=== PATIENT | female | born 1950 | race African-American/Black ===

== ENCOUNTER 2018-06-10 20:54 | Inpatient (IN) ==
[2018-06-10 21:28] LABS: Basophils % 0.3 % (0.0-0.8); Eosinophils # 0.2 10*3/uL (0.0-0.87); Eosinophils % 3.9 % (0.00-10.9); Hematocrit 45.8 VOL% (35.7-47.0); Hemoglobin 14.3 GM/DL (12.0-16.0); Immature Granulocytes % 0.2 %; Immature Granulocytes Absolute 0.01 #; Lymphocytes % 33.1 % (21.3-54.2); Mean Corpuscular HGB Conc 31.2 GM/DL (32-36); Mean Corpuscular Hemoglobin 26 PG (27-34); Mean Platelet Volume 10.8 FL (9.6-12.0); Monocytes # 0.5 10*3/uL (0.11-0.8); Monocytes % 7.6 % (1.7-12.7); Neutrophils # 3.3 10*3/uL (1.4-7.4); Neutrophils % 54.9 % (38.7-73.9); Platelet Count 246 T/CUMM (130-400); Red Blood Count 5.52 MC/CUMM (3.8-5.5); Red Cell Distribution Width 14.2 % (9.3-17.3); White Blood Count 5.9 T/CUMM (4-12)
[2018-06-10] MEDS ORDERED: DILTIAZEM 50 MG/10 ML VIAL IV STA (21:29)
[2018-06-10] MEDS ORDERED: dilTIAZem Drip 125 MG/125 ML PREMIX IV SCH ×2 (21:30→23:00)
[2018-06-10 22:01] LABS: Alanine Aminotransferase 23 U/L (13-56); Albumin 3.5 G/DL (3.4-5.0); Alkaline Phosphatase 73 U/L (45-117); Aspartate Amino Transferase 23 U/L (0-37); Bilirubin,Total < 0.39 MG/DL (0.2-1.0); Blood Urea Nitrogen 15 MG/DL (7-18); Calcium 8.6 MG/DL (8.5-10.1); Glucose 147 MG/DL (74-106); Osmolality,Calculated 280.5 MOS/KG (273-304); Potassium 3.9 MMOL/L (3.5-5.1); Sodium 139 MMOL/L (136-145); Total Protein 7.4 G/DL (6.4-8.3)
[2018-06-10 22:04] LABS: Troponin I 0.588 NG/ML (0.00-0.045)
[2018-06-10] MEDS ORDERED: ENOXAPARIN 100 MG/ML SYRINGE SUBCUT STA (22:07)
[2018-06-10] MEDS ORDERED: diphenhydrAMINE CAP 25 MG CAPSULE PO PRN (22:55)
[2018-06-10] MEDS ORDERED: MAGNESIUM SULF RIDER 2 GM in PREMIX 1 EACH IV PRN (22:55)
[2018-06-10] MEDS ORDERED: MAGNESIUM SULF RIDER 4 GM in PREMIX 1 EACH IV PRN (22:55)
[2018-06-10] MEDS ORDERED: NICOTINE 21 MG/24 HR PATCH TRANSDERM PRN (22:55)
[2018-06-10] MEDS ORDERED: ONDANSETRON 4 MG/2 ML VIAL IV PRN (22:55)
[2018-06-10] MEDS ORDERED: BISACODYL 5 MG TABLET PO PRN (22:55)
[2018-06-10] MEDS ORDERED: ACETAMINOPHEN 325 MG TABLET PO PRN (22:55)
[2018-06-10] MEDS ORDERED: POTASSIUM CHLORIDE 20 MEQ TABLET PO PRN (22:55)
[2018-06-10] MEDS ORDERED: ZALEPLON 5 MG CAPSULE PO PRN (22:55)
[2018-06-10] MEDS ORDERED: MORPHINE 4 MG/1 ML VIAL IV PRN (22:55)
[2018-06-10] MEDS ORDERED: ENOXAPARIN 40 MG/0.4 ML SYRINGE SUBCUT SCH (23:00)
[2018-06-10 23:15] LABS: Risk Ratio 3.66; VLDL CHOLESTEROL 46.6 MG/DL
[2018-06-10] MEDS ORDERED: ASPIRIN 325 MG TABLET PO STA (23:30)
[2018-06-11 04:56] LABS: Basophils % 0.2 % (0.0-0.8); Eosinophils # 0.1 10*3/uL (0.0-0.87); Eosinophils % 2.1 % (0.00-10.9); Hematocrit 43.1 VOL% (35.7-47.0); Hemoglobin 13.4 GM/DL (12.0-16.0); Immature Granulocytes % 0.3 %; Immature Granulocytes Absolute 0.02 #; Lymphocytes # 1.7 10*3/uL (1.4-4.0); Lymphocytes % 25.5 % (21.3-54.2); Mean Corpuscular HGB Conc 31.1 GM/DL (32-36); Mean Corpuscular Hemoglobin 26 PG (27-34); Mean Corpuscular Volume 82.7 FL (87-102); Mean Platelet Volume 11.4 FL (9.6-12.0); Monocytes # 0.5 10*3/uL (0.11-0.8); Monocytes % 7.1 % (1.7-12.7); Neutrophils # 4.3 10*3/uL (1.4-7.4); Neutrophils % 64.8 % (38.7-73.9); Platelet Count 234 T/CUMM (130-400); Red Blood Count 5.21 MC/CUMM (3.8-5.5); Red Cell Distribution Width 14.2 % (9.3-17.3); White Blood Count 6.6 T/CUMM (4-12)
[2018-06-11 05:16] LABS: Alanine Aminotransferase 19 U/L (13-56); Alkaline Phosphatase 69 U/L (45-117); Aspartate Amino Transferase 22 U/L (0-37); Bilirubin,Total < 0.39 MG/DL (0.2-1.0); Blood Urea Nitrogen 15 MG/DL (7-18); Calcium 8.1 MG/DL (8.5-10.1); Glucose 135 MG/DL (74-106); Osmolality,Calculated 279.5 MOS/KG (273-304); Potassium 3.6 MMOL/L (3.5-5.1); Sodium 139 MMOL/L (136-145); Total Protein 6.6 G/DL (6.4-8.3)
[2018-06-11] MEDS: PANTOPRAZOLE 40 MG TABLET PO SCH (09:49)
[2018-06-11] MEDS: ASPIRIN EC 81 MG TABLET PO SCH (09:50)
[2018-06-11] MEDS: DILTIAZEM CD 120 MG CAPSULE PO SCH (10:36)
[2018-06-11] MEDS: APIXABAN 5 MG TABLET PO SCH ×2 (10:36→20:40)
[2018-06-11] MEDS ORDERED: ENOXAPARIN 40 MG/0.4 ML SYRINGE SUBCUT SCH (21:00)
[2018-06-12 04:46] LABS: Calcium 8.6 MG/DL (8.5-10.1); Osmolality,Calculated 279.4 MOS/KG (273-304); Potassium 4.1 MMOL/L (3.5-5.1)
[2018-06-12] MEDS: DILTIAZEM CD 120 MG CAPSULE PO SCH ×3 (07:56→23:30)
[2018-06-12] MEDS: APIXABAN 5 MG TABLET PO SCH ×3 (07:57→23:32)
[2018-06-12] MEDS: PANTOPRAZOLE 40 MG TABLET PO SCH ×2 (07:57→08:00)
[2018-06-12] MEDS: ASPIRIN EC 81 MG TABLET PO SCH ×2 (07:57→08:00)
[2018-06-12] MEDS: dilTIAZem Drip 125 MG/125 ML PREMIX IV SCH (09:55)
[2018-06-12] MEDS ORDERED: DILTIAZEM 30 MG TABLET PO ONE (12:30)
[2018-06-13 07:40] LABS: Basophils % 0.3 % (0.0-0.8); Eosinophils # 0.1 10*3/uL (0.0-0.87); Eosinophils % 2.2 % (0.00-10.9); Hematocrit 47.5 VOL% (35.7-47.0); Hemoglobin 14.8 GM/DL (12.0-16.0); Immature Granulocytes % 0.2 %; Immature Granulocytes Absolute 0.01 #; Lymphocytes # 2.3 10*3/uL (1.4-4.0); Lymphocytes % 39.6 % (21.3-54.2); Mean Corpuscular HGB Conc 31.2 GM/DL (32-36); Mean Corpuscular Hemoglobin 25 PG (27-34); Mean Corpuscular Volume 81.6 FL (87-102); Mean Platelet Volume 10.6 FL (9.6-12.0); Monocytes # 0.5 10*3/uL (0.11-0.8); Monocytes % 8.5 % (1.7-12.7); Neutrophils # 2.9 10*3/uL (1.4-7.4); Neutrophils % 49.2 % (38.7-73.9); Platelet Count 264 T/CUMM (130-400); Red Blood Count 5.82 MC/CUMM (3.8-5.5); Red Cell Distribution Width 14.3 % (9.3-17.3); White Blood Count 5.9 T/CUMM (4-12)
[2018-06-13 07:59] LABS: Calcium 8.6 MG/DL (8.5-10.1); Osmolality,Calculated 275.7 MOS/KG (273-304); Potassium 4.2 MMOL/L (3.5-5.1)
[2018-06-13] MEDS: ASPIRIN EC 81 MG TABLET PO SCH (08:42)
[2018-06-13] MEDS: DILTIAZEM CD 120 MG CAPSULE PO SCH ×2 (08:42→22:11)
[2018-06-13] MEDS: APIXABAN 5 MG TABLET PO SCH ×2 (08:42→22:10)
[2018-06-13] MEDS: PANTOPRAZOLE 40 MG TABLET PO SCH (08:42)
[2018-06-13] MEDS ORDERED: DILTIAZEM CD 120 MG CAPSULE PO ONE (09:49)
[2018-06-13] MEDS: dilTIAZem Drip 125 MG/125 ML PREMIX IV SCH (11:03)
[2018-06-14 04:44] LABS: Basophils % 0.3 % (0.0-0.8); Eosinophils # 0.2 10*3/uL (0.0-0.87); Eosinophils % 2.4 % (0.00-10.9); Hematocrit 46.9 VOL% (35.7-47.0); Hemoglobin 14.7 GM/DL (12.0-16.0); Immature Granulocytes % 0.2 %; Immature Granulocytes Absolute 0.01 #; Lymphocytes # 2.6 10*3/uL (1.4-4.0); Lymphocytes % 41.7 % (21.3-54.2); Mean Corpuscular HGB Conc 31.3 GM/DL (32-36); Mean Corpuscular Hemoglobin 26 PG (27-34); Mean Corpuscular Volume 82.6 FL (87-102); Mean Platelet Volume 11.6 FL (9.6-12.0); Monocytes # 0.4 10*3/uL (0.11-0.8); Monocytes % 6.3 % (1.7-12.7); Neutrophils # 3.1 10*3/uL (1.4-7.4); Neutrophils % 49.1 % (38.7-73.9); Platelet Count 269 T/CUMM (130-400); Red Blood Count 5.68 MC/CUMM (3.8-5.5); Red Cell Distribution Width 14.3 % (9.3-17.3); White Blood Count 6.2 T/CUMM (4-12)
[2018-06-14 05:01] LABS: Calcium 8.8 MG/DL (8.5-10.1); Osmolality,Calculated 281.4 MOS/KG (273-304); Potassium 4.2 MMOL/L (3.5-5.1)
[2018-06-14] MEDS: APIXABAN 5 MG TABLET PO SCH ×2 (08:18→20:13)
[2018-06-14] MEDS: PANTOPRAZOLE 40 MG TABLET PO SCH (08:18)
[2018-06-14] MEDS: DILTIAZEM CD 120 MG CAPSULE PO SCH ×2 (08:18→21:13)
[2018-06-14] MEDS: ASPIRIN EC 81 MG TABLET PO SCH (08:18)
[2018-06-14] MEDS: dilTIAZem Drip 125 MG/125 ML PREMIX IV SCH (11:46)
[2018-06-15 08:18] LABS: Basophils % 0.4 % (0.0-0.8); Eosinophils # 0.1 10*3/uL (0.0-0.87); Eosinophils % 2.4 % (0.00-10.9); Hematocrit 46.2 VOL% (35.7-47.0); Hemoglobin 14.8 GM/DL (12.0-16.0); Immature Granulocytes % 0.4 %; Immature Granulocytes Absolute 0.02 #; Lymphocytes # 2.2 10*3/uL (1.4-4.0); Lymphocytes % 39.8 % (21.3-54.2); Mean Corpuscular Hemoglobin 26 PG (27-34); Mean Corpuscular Volume 81.6 FL (87-102); Mean Platelet Volume 10.7 FL (9.6-12.0); Monocytes # 0.5 10*3/uL (0.11-0.8); Monocytes % 8.1 % (1.7-12.7); Neutrophils # 2.7 10*3/uL (1.4-7.4); Neutrophils % 48.9 % (38.7-73.9); Platelet Count 275 T/CUMM (130-400); Red Blood Count 5.66 MC/CUMM (3.8-5.5); Red Cell Distribution Width 14.4 % (9.3-17.3); White Blood Count 5.5 T/CUMM (4-12)
[2018-06-15 08:36] LABS: Calcium 8.8 MG/DL (8.5-10.1); Osmolality,Calculated 276.7 MOS/KG (273-304); Potassium 4.1 MMOL/L (3.5-5.1)
[2018-06-15] MEDS ORDERED: MAGNESIUM OXIDE 400 MG TABLET PO SCH (09:00)
[2018-06-15] MEDS ORDERED: DILTIAZEM CD 240 MG CAPSULE PO ONE (10:02)
[2018-06-15] MEDS ORDERED: PHENYLEPHRINE 1 MG/10 ML SYRINGE IV ONE (10:07)
[2018-06-15] MEDS ORDERED: PROPOFOL 200 MG/20 ML VIAL IV ONE (10:07)
[2018-06-15] MEDS ORDERED: LIDOCAINE 2% 5 ML VIAL ONE (10:07)
[2018-06-15] MEDS ORDERED: ETOMIDATE 20 MG/10 ML VIAL IV ONE (10:07)
[2018-06-15] MEDS: dilTIAZem Drip 125 MG/125 ML PREMIX IV SCH (11:18)
[2018-06-15] MEDS: DILTIAZEM CD 120 MG CAPSULE PO SCH (11:18)
[2018-06-15] MEDS: PANTOPRAZOLE 40 MG TABLET PO SCH (11:21)
[2018-06-15] MEDS: APIXABAN 5 MG TABLET PO SCH (11:21)
[2018-06-15] MEDS: ASPIRIN EC 81 MG TABLET PO SCH (11:21)
[2018-06-15 16:27] VITALS: BP 128/86
== END 2018-06-15 17:53 | disposition home or self-care (01) | DRG 310 ==
LOC: N.ED 20:54 → N.EDINP 22:55 → SUATTDRO 22:55 → N.TELES 23:26
PROVIDERS: ADMIT Internal Medicine; ATTEND Internal Medicine Geriatric Medicine

== ENCOUNTER 2018-09-15 13:27 | Inpatient (IN) ==
[2018-09-15] MEDS ORDERED: ONDANSETRON 4 MG/2 ML VIAL IV STA (13:58)
[2018-09-15 14:07] LABS: Basophils % 0.4 % (0.0-0.8); Eosinophils # 0.1 10*3/uL (0.0-0.87); Eosinophils % 2.7 % (0.00-10.9); Hematocrit 49.2 VOL% (35.7-47.0); Hemoglobin 15.7 GM/DL (12.0-16.0); Lymphocytes # 2.2 10*3/uL (1.4-4.0); Lymphocytes % 42.7 % (21.3-54.2); Mean Corpuscular HGB Conc 31.9 GM/DL (32-36); Mean Corpuscular Volume 81.3 FL (87-102); Mean Platelet Volume 11.5 FL (9.6-12.0); Monocytes % 6.4 % (1.7-12.7); Neutrophils % 47.8 % (38.7-73.9); Platelet Count 224 T/CUMM (130-400); Red Blood Count 6.05 MC/CUMM (3.8-5.5); White Blood Count 5.2 T/CUMM (4-12)
[2018-09-15 14:36] LABS: Albumin 3.5 G/DL (3.4-5.0); Bilirubin,Total 0.8 MG/DL (0.2-1.0); Calcium 8.9 MG/DL (8.5-10.1); Osmolality,Calculated 283.3 MOS/KG (273-304); Total Protein 6.8 G/DL (6.4-8.3)
[2018-09-15 15:34] LABS: Apearance,Urine CLEAR (Clear); Bilirubin,Urine Negative (Negative); Blood, Urine Small mg/dL (Negative); Glucose,Urine (UA) Negative (Negative); Ketones,Urine 5 mg/dL (Negative); Mucus,Urine Occasional /LPF (Occasional); Nitrite,Urine Negative (Negative); Protein,Urine 100 MG/DL; RBC,Urine 2 /HPF (0-4); Urine Color Yellow (Yellow); Urine Specific Gravity 1.021 (1.001-1.035); Urine Urobilinogen < 2.0 EU/DL (0.2-1.0); WBC,Urine <1 /HPF (0-6)
[2018-09-15] MEDS ORDERED: ZALEPLON 5 MG CAPSULE PO PRN (19:04)
[2018-09-15] MEDS ORDERED: ONDANSETRON 4 MG/2 ML VIAL IV PRN (19:04)
[2018-09-15] MEDS ORDERED: DOCUSATE SODIUM 100 MG CAPSULE PO PRN (19:04)
[2018-09-15] MEDS ORDERED: ACETAMINOPHEN 325 MG TABLET PO PRN (19:04)
[2018-09-15] MEDS ORDERED: ZINC OXIDE TOP SCH (21:00)
[2018-09-15] MEDS ORDERED: HYDROCORTISONE TOP SCH (21:00)
[2018-09-15] MEDS ORDERED: NYSTATIN TOP SCH (21:00)
[2018-09-15 21:40] LABS: Troponin I 0.573 NG/ML (0.00-0.045)
[2018-09-15] MEDS: METOPROLOL TARTRATE 25 MG TABLET PO SCH (22:40)
[2018-09-15] MEDS ORDERED: ATROPINE 1 MG/10 ML SYRINGE IV PRN (22:41)
[2018-09-15] MEDS: APIXABAN 5 MG TABLET PO SCH (22:54)
[2018-09-15] MEDS: ATORVASTATIN 80 MG TABLET PO SCH (22:55)
[2018-09-15] MEDS: SODIUM CHLORIDE 0.9% 1,000 ML IV SCH (23:21)
[2018-09-16 04:56] LABS: Basophils % 0.2 % (0.0-0.8); Eosinophils # 0.1 10*3/uL (0.0-0.87); Eosinophils % 2.2 % (0.00-10.9); Hematocrit 46.5 VOL% (35.7-47.0); Hemoglobin 14.9 GM/DL (12.0-16.0); Immature Granulocytes % 0.4 %; Immature Granulocytes Absolute 0.02 #; Lymphocytes # 2.1 10*3/uL (1.4-4.0); Lymphocytes % 42.3 % (21.3-54.2); Mean Corpuscular Volume 81.9 FL (87-102); Mean Platelet Volume 11.8 FL (9.6-12.0); Monocytes % 6.5 % (1.7-12.7); Neutrophils % 48.4 % (38.7-73.9); Platelet Count 208 T/CUMM (130-400); Red Blood Count 5.68 MC/CUMM (3.8-5.5); Red Cell Distribution Width 13.9 % (9.3-17.3); White Blood Count 5.1 T/CUMM (4-12)
[2018-09-16 05:16] LABS: Troponin I 0.462 NG/ML (0.00-0.045)
[2018-09-16 05:21] LABS: Albumin 3.2 G/DL (3.4-5.0); Calcium 8.7 MG/DL (8.5-10.1); Osmolality,Calculated 282.1 MOS/KG (273-304); Risk Ratio 2.51; Total Protein 6.3 G/DL (6.4-8.3); VLDL CHOLESTEROL 15.4 MG/DL
[2018-09-16] MEDS: PANTOPRAZOLE 40 MG TABLET PO SCH (08:50)
[2018-09-16] MEDS: APIXABAN 5 MG TABLET PO SCH (08:50)
[2018-09-16] MEDS: METOPROLOL TARTRATE 25 MG TABLET PO SCH ×2 (08:50→21:50)
[2018-09-16] MEDS: ASPIRIN EC 81 MG TABLET PO SCH (08:50)
[2018-09-16] MEDS: SODIUM CHLORIDE 0.9% 1,000 ML IV SCH (08:52)
[2018-09-16 17:08] LABS: PT Patient Result 11.1 SECS
[2018-09-16] MEDS ORDERED: HEPARIN DRIP 25,000 UNITS/500 ML PREMIX IV SCH (18:30)
[2018-09-16] MEDS: HEPARIN DRIP 25,000 UNITS/500 ML PREMIX IV SCH (18:34)
[2018-09-16] MEDS: WARFARIN 5 MG TABLET PO SCH (18:34)
[2018-09-16] MEDS ORDERED: DEXTROSE 50% 25 GM/50 ML SYRINGE IV PRN (19:35)
[2018-09-16] MEDS ORDERED: GLUCAGON 1 MG VIAL IM PRN (19:35)
[2018-09-16] MEDS: INSULIN REGULAR 100 UNIT/ML SUBCUT SCH (21:49)
[2018-09-16] MEDS: ATORVASTATIN 80 MG TABLET PO SCH (21:50)
[2018-09-17 00:53] LABS: Basophils % 0.4 % (0.0-0.8); Eosinophils # 0.2 10*3/uL (0.0-0.87); Eosinophils % 2.9 % (0.00-10.9); Hematocrit 44.9 VOL% (35.7-47.0); Hemoglobin 14.6 GM/DL (12.0-16.0); Immature Granulocytes % 0.2 %; Immature Granulocytes Absolute 0.01 #; Lymphocytes # 2.7 10*3/uL (1.4-4.0); Lymphocytes % 48.8 % (21.3-54.2); Mean Corpuscular HGB Conc 32.5 GM/DL (32-36); Mean Corpuscular Volume 81.8 FL (87-102); Mean Platelet Volume 11.4 FL (9.6-12.0); Monocytes % 7.5 % (1.7-12.7); Neutrophils % 40.2 % (38.7-73.9); Platelet Count 186 T/CUMM (130-400); Red Blood Count 5.49 MC/CUMM (3.8-5.5); Red Cell Distribution Width 13.9 % (9.3-17.3); White Blood Count 5.6 T/CUMM (4-12)
[2018-09-17 01:05] LABS: Calcium 8.4 MG/DL (8.5-10.1); Osmolality,Calculated 281.3 MOS/KG (273-304)
[2018-09-17] MEDS: INSULIN REGULAR 100 UNIT/ML SUBCUT SCH ×4 (09:11→22:28)
[2018-09-17] MEDS: PANTOPRAZOLE 40 MG TABLET PO SCH (09:12)
[2018-09-17] MEDS: ASPIRIN EC 81 MG TABLET PO SCH (09:12)
[2018-09-17] MEDS: METOPROLOL TARTRATE 25 MG TABLET PO SCH ×2 (09:12→21:27)
[2018-09-17] MEDS ORDERED: MAGNESIUM SULF RIDER 2 GM in PREMIX 1 EACH IV ONE (09:44)
[2018-09-17] MEDS ORDERED: MAGNESIUM SULF RIDER 2 GM in PREMIX 1 EACH IV PRN (12:35)
[2018-09-17] MEDS ORDERED: MAGNESIUM SULF RIDER 4 GM in PREMIX 1 EACH IV PRN (12:35)
[2018-09-17] MEDS: WARFARIN 5 MG TABLET PO SCH (17:16)
[2018-09-17] MEDS: HEPARIN DRIP 25,000 UNITS/500 ML PREMIX IV SCH ×2 (18:08→22:26)
[2018-09-17] MEDS: ATORVASTATIN 80 MG TABLET PO SCH (21:27)
[2018-09-18 04:35] LABS: Basophils % 0.4 % (0.0-0.8); Eosinophils # 0.2 10*3/uL (0.0-0.87); Eosinophils % 4.2 % (0.00-10.9); Hematocrit 46.7 VOL% (35.7-47.0); Hemoglobin 14.9 GM/DL (12.0-16.0); Immature Granulocytes % 0.2 %; Immature Granulocytes Absolute 0.01 #; Lymphocytes % 43.5 % (21.3-54.2); Mean Corpuscular HGB Conc 31.9 GM/DL (32-36); Mean Corpuscular Volume 81.8 FL (87-102); Mean Platelet Volume 11.3 FL (9.6-12.0); Monocytes % 7.8 % (1.7-12.7); Neutrophils % 43.9 % (38.7-73.9); Platelet Count 199 T/CUMM (130-400); Red Blood Count 5.71 MC/CUMM (3.8-5.5); Red Cell Distribution Width 13.7 % (9.3-17.3); White Blood Count 4.5 T/CUMM (4-12)
[2018-09-18 04:39] LABS: INR 1.1; PT Patient Result 11.4 SECS
[2018-09-18 05:05] LABS: Osmolality,Calculated 282.1 MOS/KG (273-304)
[2018-09-18] MEDS: PANTOPRAZOLE 40 MG TABLET PO SCH (08:35)
[2018-09-18] MEDS: METOPROLOL TARTRATE 25 MG TABLET PO SCH ×2 (08:35→21:27)
[2018-09-18] MEDS: ASPIRIN EC 81 MG TABLET PO SCH (08:35)
[2018-09-18] MEDS: INSULIN REGULAR 100 UNIT/ML SUBCUT SCH ×4 (09:18→22:16)
[2018-09-18] MEDS: WARFARIN 5 MG TABLET PO SCH (18:48)
[2018-09-18] MEDS: ATORVASTATIN 80 MG TABLET PO SCH (21:28)
[2018-09-19 04:09] LABS: Basophils % 0.4 % (0.0-0.8); Eosinophils # 0.2 10*3/uL (0.0-0.87); Eosinophils % 2.7 % (0.00-10.9); Hematocrit 48.1 VOL% (35.7-47.0); Hemoglobin 15.3 GM/DL (12.0-16.0); Immature Granulocytes % 0.2 %; Immature Granulocytes Absolute 0.01 #; Lymphocytes # 2.6 10*3/uL (1.4-4.0); Lymphocytes % 47.1 % (21.3-54.2); Mean Corpuscular HGB Conc 31.8 GM/DL (32-36); Mean Corpuscular Volume 81.3 FL (87-102); Mean Platelet Volume 11.1 FL (9.6-12.0); Monocytes % 6.6 % (1.7-12.7); Platelet Count 188 T/CUMM (130-400); Red Blood Count 5.92 MC/CUMM (3.8-5.5); Red Cell Distribution Width 13.8 % (9.3-17.3); White Blood Count 5.6 T/CUMM (4-12)
[2018-09-19 04:31] LABS: INR 1.1; PT Patient Result 12.2 SECS
[2018-09-19] MEDS: HEPARIN DRIP 25,000 UNITS/500 ML PREMIX IV SCH ×3 (09:02→18:57)
[2018-09-19] MEDS: INSULIN REGULAR 100 UNIT/ML SUBCUT SCH ×4 (09:02→21:38)
[2018-09-19] MEDS: PANTOPRAZOLE 40 MG TABLET PO SCH (09:03)
[2018-09-19] MEDS: ASPIRIN EC 81 MG TABLET PO SCH (09:03)
[2018-09-19] MEDS: METOPROLOL TARTRATE 25 MG TABLET PO SCH ×2 (09:03→21:38)
[2018-09-19] MEDS ORDERED: WARFARIN 10 MG TABLET PO ONE (18:00)
[2018-09-19] MEDS: ATORVASTATIN 80 MG TABLET PO SCH (21:38)
[2018-09-20 04:50] LABS: Basophils % 0.4 % (0.0-0.8); Eosinophils # 0.2 10*3/uL (0.0-0.87); Eosinophils % 2.9 % (0.00-10.9); Hematocrit 46.8 VOL% (35.7-47.0); Hemoglobin 14.7 GM/DL (12.0-16.0); Immature Granulocytes % 0.2 %; Immature Granulocytes Absolute 0.01 #; Lymphocytes # 2.4 10*3/uL (1.4-4.0); Lymphocytes % 47.6 % (21.3-54.2); Mean Corpuscular HGB Conc 31.4 GM/DL (32-36); Mean Corpuscular Volume 82.2 FL (87-102); Mean Platelet Volume 11.9 FL (9.6-12.0); Monocytes % 6.5 % (1.7-12.7); Neutrophils % 42.4 % (38.7-73.9); Platelet Count 152 T/CUMM (130-400); Red Blood Count 5.69 MC/CUMM (3.8-5.5); Red Cell Distribution Width 14.2 % (9.3-17.3); White Blood Count 5.1 T/CUMM (4-12)
[2018-09-20 04:59] LABS: INR 1.2; PT Patient Result 13.3 SECS
[2018-09-20] MEDS: INSULIN REGULAR 100 UNIT/ML SUBCUT SCH ×4 (07:59→22:12)
[2018-09-20] MEDS: ASPIRIN EC 81 MG TABLET PO SCH (09:02)
[2018-09-20] MEDS: METOPROLOL TARTRATE 25 MG TABLET PO SCH ×2 (09:02→21:37)
[2018-09-20] MEDS: PANTOPRAZOLE 40 MG TABLET PO SCH (09:02)
[2018-09-20] MEDS ORDERED: WARFARIN 10 MG TABLET PO ONE (14:48)
[2018-09-20] MEDS ORDERED: WARFARIN 5 MG TABLET PO SCH (18:00)
[2018-09-20] MEDS: HEPARIN DRIP 25,000 UNITS/500 ML PREMIX IV SCH (18:38)
[2018-09-20] MEDS: ATORVASTATIN 80 MG TABLET PO SCH (21:37)
[2018-09-21] MEDS: HEPARIN DRIP 25,000 UNITS/500 ML PREMIX IV SCH (02:38)
[2018-09-21 05:09] LABS: Basophils % 0.2 % (0.0-0.8); Eosinophils # 0.2 10*3/uL (0.0-0.87); Hematocrit 47.3 VOL% (35.7-47.0); Hemoglobin 14.9 GM/DL (12.0-16.0); Lymphocytes # 2.5 10*3/uL (1.4-4.0); Lymphocytes % 49.2 % (21.3-54.2); Mean Corpuscular HGB Conc 31.5 GM/DL (32-36); Mean Corpuscular Volume 81.7 FL (87-102); Mean Platelet Volume 11.8 FL (9.6-12.0); Monocytes % 6.7 % (1.7-12.7); Neutrophils % 40.9 % (38.7-73.9); Platelet Count 185 T/CUMM (130-400); Red Blood Count 5.79 MC/CUMM (3.8-5.5); White Blood Count 5.1 T/CUMM (4-12)
[2018-09-21 05:18] LABS: INR 2.2
[2018-09-21 05:19] LABS: PT Patient Result 23.7 SECS
[2018-09-21 05:25] LABS: Osmolality,Calculated 280.3 MOS/KG (273-304)
[2018-09-21] MEDS: METOPROLOL TARTRATE 25 MG TABLET PO SCH (10:53)
[2018-09-21] MEDS: PANTOPRAZOLE 40 MG TABLET PO SCH (10:54)
[2018-09-21] MEDS: ASPIRIN EC 81 MG TABLET PO SCH (10:54)
[2018-09-21] MEDS: INSULIN REGULAR 100 UNIT/ML SUBCUT SCH ×2 (10:56→13:42)
[2018-09-21 13:19] VITALS: BP 130/72
[2018-09-21] MEDS ORDERED: WARFARIN 7.5 MG TABLET PO SCH (18:00)
== END 2018-09-21 15:20 | disposition home or self-care (01) | DRG 65 ==
LOC: N.ED 13:27 → N.EDINP 19:03 → N.TELES 19:32
PROVIDERS: ADMIT Internal Medicine; ATTEND Internal Medicine

== ENCOUNTER 2018-09-29 16:32 | Inpatient (IN) ==
[2018-09-29 18:40] LABS: Basophils % 0.3 % (0.0-0.8); Eosinophils # 0.1 10*3/uL (0.0-0.87); Eosinophils % 0.8 % (0.00-10.9); Hematocrit 54.2 VOL% (35.7-47.0); Immature Granulocytes % 0.5 %; Immature Granulocytes Absolute 0.03 #; Lymphocytes # 1.6 10*3/uL (1.4-4.0); Lymphocytes % 27.5 % (21.3-54.2); Mean Corpuscular HGB Conc 31.4 GM/DL (32-36); Mean Corpuscular Volume 81.6 FL (87-102); Monocytes % 5.7 % (1.7-12.7); Neutrophils % 65.2 % (38.7-73.9); Platelet Count 278 T/CUMM (130-400); Red Blood Count 6.64 MC/CUMM (3.8-5.5); Red Cell Distribution Width 15.2 % (9.3-17.3)
[2018-09-29 18:53] LABS: Calcium 9.1 MG/DL (8.5-10.1); Osmolality,Calculated 281.4 MOS/KG (273-304)
[2018-09-29] MEDS ORDERED: cefTRIAXone 250 MG VIAL IM STA (18:54)
[2018-09-29 19:51] LABS: PT Patient Result 134.6 SECS
[2018-09-29 19:52] LABS: INR 12.7
[2018-09-29 20:00] LABS: Apearance,Urine CLOUDY (Clear); Bacteria,Urine Moderate /HPF (Few); Bilirubin,Urine Negative (Negative); Blood, Urine Moderate mg/dL (Negative); Glucose,Urine (UA) Negative (Negative); Ketones,Urine 5 mg/dL (Negative); Mucus,Urine Few /LPF (Occasional); Nitrite,Urine Negative (Negative); Protein,Urine 30 MG/DL; RBC,Urine 17 /HPF (0-4); Squamous Epithelial Cell,Urine Many /HPF (0-10); Urine Color Amber (Yellow); Urine Urobilinogen < 2.0 EU/DL (0.2-1.0); WBC,Urine 22 /HPF (0-6)
[2018-09-29] MEDS ORDERED: cefTRIAXone 1,000 MG VIAL ONE (20:09)
[2018-09-29] MEDS ORDERED: METOPROLOL TARTRATE 5 MG/5 ML VIAL IV ONE (20:24)
[2018-09-29] MEDS ORDERED: cefTRIAXone 1,000 MG in SODIUM CHLORIDE 0.9% 100 ML IV STA (20:33)
[2018-09-29] MEDS ORDERED: METOPROLOL TARTRATE 5 MG/5 ML VIAL IV STA (20:34)
[2018-09-29] MEDS ORDERED: ACETAMINOPHEN 325 MG TABLET PO PRN (21:47)
[2018-09-29] MEDS ORDERED: DOCUSATE SODIUM 100 MG CAPSULE PO PRN (21:48)
[2018-09-29] MEDS ORDERED: DEXTROSE 50% 25 GM/50 ML SYRINGE IV PRN (21:48)
[2018-09-29] MEDS ORDERED: ONDANSETRON 4 MG/2 ML VIAL IV PRN (21:48)
[2018-09-29] MEDS ORDERED: ZALEPLON 5 MG CAPSULE PO PRN (21:48)
[2018-09-29] MEDS ORDERED: GLUCAGON 1 MG VIAL IM PRN (21:48)
[2018-09-29] MEDS ORDERED: SODIUM CHLORIDE 0.9% 1,000 ML IV SCH (22:00)
[2018-09-29] MEDS: INSULIN REGULAR 100 UNIT/ML SUBCUT SCH (22:08)
[2018-09-29] MEDS: ATORVASTATIN 80 MG TABLET PO SCH (22:26)
[2018-09-29] MEDS: METOPROLOL TARTRATE 25 MG TABLET PO SCH (22:26)
[2018-09-29] MEDS ORDERED: LEVOFLOXACIN INJ 750 MG in PREMIX 1 EACH IV SCH (22:30)
[2018-09-29] MEDS ORDERED: MAGNESIUM SULF RIDER 2 GM in PREMIX 1 EACH IV PRN (23:15)
[2018-09-29] MEDS ORDERED: MAGNESIUM SULF RIDER 4 GM in PREMIX 1 EACH IV PRN (23:15)
[2018-09-30] MEDS ORDERED: ALBUTEROL/IPRATROPIUM 3 ML NEB RESP TX PRN (00:18)
[2018-09-30] MEDS: PIPERACILLIN/TAZOBACTAM 3,375 MG in SODIUM CHLORIDE 0.9% 100 ML IV SCH ×3 (00:35→17:27)
[2018-09-30 02:26] LABS: Basophils % 0.3 % (0.0-0.8); Eosinophils # 0.1 10*3/uL (0.0-0.87); Eosinophils % 0.9 % (0.00-10.9); Hematocrit 47.9 VOL% (35.7-47.0); Hemoglobin 15.5 GM/DL (12.0-16.0); Immature Granulocytes % 0.2 %; Immature Granulocytes Absolute 0.01 #; Lymphocytes # 2.1 10*3/uL (1.4-4.0); Lymphocytes % 36.2 % (21.3-54.2); Mean Corpuscular HGB Conc 32.4 GM/DL (32-36); Mean Corpuscular Volume 80.6 FL (87-102); Mean Platelet Volume 11.7 FL (9.6-12.0); Monocytes % 5.5 % (1.7-12.7); Neutrophils % 56.9 % (38.7-73.9); Platelet Count 269 T/CUMM (130-400); Red Blood Count 5.94 MC/CUMM (3.8-5.5); Red Cell Distribution Width 14.2 % (9.3-17.3); White Blood Count 5.8 T/CUMM (4-12)
[2018-09-30 02:49] LABS: PT Patient Result 153.1 SECS
[2018-09-30 02:49] LABS: Calcium 8.3 MG/DL (8.5-10.1); Osmolality,Calculated 282.4 MOS/KG (273-304)
[2018-09-30 02:51] LABS: INR 14.4
[2018-09-30] MEDS: VANCOMYCIN INJ 1,250 MG in SODIUM CHLORIDE 0.9% 250 ML IV SCH ×2 (06:47→16:19)
[2018-09-30] MEDS ORDERED: PHYTONADIONE 5 MG/5 ML ORAL.SYR PO SCH (09:00)
[2018-09-30] MEDS: INSULIN REGULAR 100 UNIT/ML SUBCUT SCH ×4 (09:49→20:37)
[2018-09-30] MEDS: METOPROLOL TARTRATE 25 MG TABLET PO SCH ×2 (09:49→20:36)
[2018-09-30] MEDS: PANTOPRAZOLE 40 MG TABLET PO SCH (09:49)
[2018-09-30] MEDS: ATORVASTATIN 80 MG TABLET PO SCH (20:37)
[2018-10-01] MEDS: PIPERACILLIN/TAZOBACTAM 3,375 MG in SODIUM CHLORIDE 0.9% 100 ML IV SCH ×3 (01:05→16:37)
[2018-10-01 04:56] LABS: Basophils % 0.7 % (0.0-0.8); Eosinophils # 0.1 10*3/uL (0.0-0.87); Eosinophils % 2.2 % (0.00-10.9); Hematocrit 44.8 VOL% (35.7-47.0); Hemoglobin 13.7 GM/DL (12.0-16.0); Immature Granulocytes % 0.4 %; Immature Granulocytes Absolute 0.02 #; Lymphocytes # 1.9 10*3/uL (1.4-4.0); Lymphocytes % 41.7 % (21.3-54.2); Mean Corpuscular HGB Conc 30.6 GM/DL (32-36); Mean Corpuscular Volume 82.7 FL (87-102); Mean Platelet Volume 11.4 FL (9.6-12.0); Platelet Count 246 T/CUMM (130-400); Red Blood Count 5.42 MC/CUMM (3.8-5.5); Red Cell Distribution Width 14.5 % (9.3-17.3); White Blood Count 4.6 T/CUMM (4-12)
[2018-10-01 05:05] LABS: INR 1.5; PT Patient Result 16.7 SECS
[2018-10-01 05:16] LABS: Osmolality,Calculated 285.8 MOS/KG (273-304)
[2018-10-01] MEDS: VANCOMYCIN INJ 1,250 MG in SODIUM CHLORIDE 0.9% 250 ML IV SCH (05:20)
[2018-10-01] MEDS: INSULIN REGULAR 100 UNIT/ML SUBCUT SCH ×4 (08:53→22:02)
[2018-10-01] MEDS: PANTOPRAZOLE 40 MG TABLET PO SCH (08:54)
[2018-10-01] MEDS: METOPROLOL TARTRATE 25 MG TABLET PO SCH ×2 (08:54→21:12)
[2018-10-01] MEDS: HEPARIN DRIP 25,000 UNITS/500 ML PREMIX IV SCH (11:22)
[2018-10-01] MEDS: ATORVASTATIN 80 MG TABLET PO SCH (21:12)
[2018-10-02 04:38] LABS: Basophils % 0.4 % (0.0-0.8); Eosinophils # 0.1 10*3/uL (0.0-0.87); Eosinophils % 2.3 % (0.00-10.9); Hematocrit 43.4 VOL% (35.7-47.0); Hemoglobin 13.9 GM/DL (12.0-16.0); Immature Granulocytes % 0.2 %; Immature Granulocytes Absolute 0.01 #; Lymphocytes # 2.5 10*3/uL (1.4-4.0); Lymphocytes % 51.9 % (21.3-54.2); Mean Platelet Volume 11.7 FL (9.6-12.0); Monocytes % 7.4 % (1.7-12.7); Neutrophils % 37.8 % (38.7-73.9); Platelet Count 246 T/CUMM (130-400); Red Blood Count 5.36 MC/CUMM (3.8-5.5); Red Cell Distribution Width 14.4 % (9.3-17.3); White Blood Count 4.7 T/CUMM (4-12)
[2018-10-02 04:57] LABS: INR 1.3; PT Patient Result 13.8 SECS
[2018-10-02 05:03] LABS: Calcium 8.7 MG/DL (8.5-10.1); Osmolality,Calculated 280.3 MOS/KG (273-304)
[2018-10-02 05:56] LABS: Anisocytosis 1+; Eosinophils 1 % (0-10); Hypochromasia 1+; Lymphocytes 66 % (20-55); Platelet Estimate Adequate; Segmented Neutrophils 30 % (50-85); Total Cells Counted 100
[2018-10-02] MEDS: INSULIN REGULAR 100 UNIT/ML SUBCUT SCH ×4 (08:17→22:07)
[2018-10-02] MEDS: HEPARIN DRIP 25,000 UNITS/500 ML PREMIX IV SCH ×2 (09:17→10:30)
[2018-10-02] MEDS: METOPROLOL TARTRATE 25 MG TABLET PO SCH ×2 (09:18→21:55)
[2018-10-02] MEDS: PANTOPRAZOLE 40 MG TABLET PO SCH (09:18)
[2018-10-02] MEDS ORDERED: WARFARIN 5 MG TABLET PO SCH (18:00)
[2018-10-02] MEDS: ATORVASTATIN 80 MG TABLET PO SCH (21:55)
[2018-10-03 00:04] LABS: INR 1.2; PT Patient Result 13.4 SECS; Partial Thromboplastin Time 42.7 SECS (0-40)
[2018-10-03] MEDS: HEPARIN DRIP 25,000 UNITS/500 ML PREMIX IV SCH ×2 (00:28→09:31)
[2018-10-03] MEDS ORDERED: LISINOPRIL 20 MG TABLET PO ONE (04:04)
[2018-10-03 05:38] LABS: INR 1.3; PT Patient Result 14.4 SECS
[2018-10-03 07:32] LABS: INR 1.3; PT Patient Result 14.5 SECS
[2018-10-03 07:42] LABS: Partial Thromboplastin Time 72.1 SECS (0-40)
[2018-10-03] MEDS: INSULIN REGULAR 100 UNIT/ML SUBCUT SCH ×4 (07:55→20:41)
[2018-10-03] MEDS: METOPROLOL TARTRATE 25 MG TABLET PO SCH ×2 (09:21→20:32)
[2018-10-03] MEDS: PANTOPRAZOLE 40 MG TABLET PO SCH (09:21)
[2018-10-03] MEDS ORDERED: hydrALAZINE 20 MG/1 ML VIAL IV PRN (10:27)
[2018-10-03] MEDS: ENOXAPARIN 100 MG/ML SYRINGE SUBCUT SCH ×2 (12:20→23:12)
[2018-10-03] MEDS: ATORVASTATIN 80 MG TABLET PO SCH (20:30)
[2018-10-04 05:33] LABS: Basophils % 0.4 % (0.0-0.8); Eosinophils # 0.1 10*3/uL (0.0-0.87); Eosinophils % 2.4 % (0.00-10.9); Hematocrit 43.5 VOL% (35.7-47.0); Hemoglobin 13.7 GM/DL (12.0-16.0); Immature Granulocytes % 0.2 %; Immature Granulocytes Absolute 0.01 #; Lymphocytes # 2.3 10*3/uL (1.4-4.0); Lymphocytes % 46.8 % (21.3-54.2); Mean Corpuscular HGB Conc 31.5 GM/DL (32-36); Mean Corpuscular Volume 82.5 FL (87-102); Mean Platelet Volume 11.1 FL (9.6-12.0); Monocytes % 7.5 % (1.7-12.7); Neutrophils % 42.7 % (38.7-73.9); Platelet Count 250 T/CUMM (130-400); Red Blood Count 5.27 MC/CUMM (3.8-5.5); Red Cell Distribution Width 14.4 % (9.3-17.3); White Blood Count 4.9 T/CUMM (4-12)
[2018-10-04 05:36] LABS: INR 1.5; PT Patient Result 16.1 SECS
[2018-10-04 05:45] LABS: Osmolality,Calculated 279.3 MOS/KG (273-304)
[2018-10-04] MEDS: INSULIN REGULAR 100 UNIT/ML SUBCUT SCH ×2 (07:45→11:44)
[2018-10-04] MEDS: PANTOPRAZOLE 40 MG TABLET PO SCH (08:30)
[2018-10-04] MEDS: METOPROLOL TARTRATE 25 MG TABLET PO SCH (08:30)
[2018-10-04] MEDS: ENOXAPARIN 100 MG/ML SYRINGE SUBCUT SCH (11:45)
[2018-10-04 12:08] VITALS: BP 112/79
== END 2018-10-04 15:15 | disposition home health service (06) | DRG 309 ==
LOC: N.ED 16:32 → SUATTDRO 20:41 → N.EDINP 20:41 → N.2E 20:59
PROVIDERS: ADMIT Phlebology; ATTEND Internal Medicine